=== PATIENT | female | born 1970 | race Caucasian/White ===

== ENCOUNTER 2019-12-06 15:30 | Outpatient (REF) | payer BC, SELFPAY ==
--- NOTE | 2019-12-06 14:00 | CER_PTH ---
PATIENT: Deanne Araiza LOC: [facility] U#:[id number] AGE/SX: 49/F ROOM: RE12/06/[address]: Nafisa Bonilla : 1970 BED: DIS: 12/06/2019 SPEC #: [id number] RECD: 12/06/19 17:58 STATUS: HERNESTO FLYNN #: [id number] DEENA: 12/06/19 14:[address]: Nafisa Bonilla DEPT: Surgical Specimen RECD BY: Renea Eduardo ENTERED: 12/06/19 17:59 SP TYPE: CER OTHR DR: Naomie Khan Tissues: 1 - CERVICAL BIOPSY Procedures: GROSS AND MICRO LEVEL 4 IMMUNOPEROXIDASE STAIN Comments: [id number]
== END 2019-12-06 15:50 ==
LOC: LBN 15:30
PROVIDERS: PCP Family Medicine; Visit Provider Obstetrics & Gynecology Gynecology
DX: C53.9 Malignant neoplasm of cervix uteri, unspecified (principal)
CPT/HCPCS: 88305; 88361

== ENCOUNTER → 2022-03-11 02:01 | Outpatient (CLI) | payer OTHER, SELFPAY | PROVIDERS: PCP Family Medicine; Visit Provider Family Medicine ==

== ENCOUNTER 2024-06-25 08:01 | Outpatient (REF) | payer BC, SELFPAY ==
[2024-06-25 19:44] LABS: ALT 46 U/L (14-59); AST 21 U/L (15-37); Alkaline Phosphatase 119 U/L (46-116); Anion Gap 12.3 mmol/L (3-11); BUN 27 mg/dL (7-18); Bilirubin, Total 0.23 mg/dL (0.2-1.0); CO2 24.7 mmol/L (21.0-32.0); Calcium 9.1 mg/dL (8.5-10.1); Calculated LDL 153 mg/dL (<100); Chloride 102 mmol/L (98-107); Cholesterol 253 mg/dL (<200); Estimated GFR 66.95 (mL/min/1.73m2); Glucose 82 mg/dL (74-106); HDL Cholesterol 77 mg/dL (40-60); Potassium 4.2 mmol/L (3.5-5.1); Sodium 139 mmol/L (136-145); Total Protein 7.4 g/dL (6.4-8.2); Triglyceride 115 mg/dL (<150); Vitamin B12 328 pg/mL (193-986); Vitamin D 25 Total 23.6 ng/mL (30-100)
[2024-06-25 20:08] LABS: TSH (W/Ref FT4) 1.52 uIU/mL (0.36-3.74)
== END 2024-06-25 08:02 | disposition home or self-care (01) ==
LOC: LBN 08:01
PROVIDERS: PCP Family Medicine; Visit Provider Nurse Practitioner Family
DX: Z00.00 Encounter for general adult medical examination without abnormal findings (principal)
CPT/HCPCS: 80053; 80061; 82306; 82607; 84443